=== PATIENT | male | born 1960 | race Caucasian/White ===

== ENCOUNTER 2020-05-07 10:28 | Day surgery (SDC) | payer OTHER ==
[~2020-05-07] VITALS: Ht 193 cm; Wt 103.7 kg
[2020-05-07] MEDS ORDERED: AMARYL1 M1 PO (11:19)
[2020-05-07] MEDS ORDERED: INVOKANA300 MG PO (11:19)
[2020-05-07] MEDS ORDERED: IBUP200 PO (11:20)
[2020-05-07] MEDS ORDERED: TADA10TA (11:20)
[2020-05-07] MEDS ORDERED: LISI20 PO (11:21)
[2020-05-07] MEDS ORDERED: METF500 PO (11:21)
[2020-05-07] MEDS ORDERED: ATOR40TA PO (11:22)
== END 2020-05-07 12:37 | disposition home or self-care (01) ==
LOC: ORSCSDS 10:28
PROVIDERS: Orthopaedic Surgery
PROC: 01N54ZZ Release Median Nerve, Percutaneous Endoscopic Approach (ICD-10-PCS; principal; 2020-05-07 11:45)
DX: G56.02 Carpal tunnel syndrome, left upper limb (principal); E11.9 Type 2 diabetes mellitus without complications; G47.30 Sleep apnea, unspecified; I10 Essential (primary) hypertension; Z87.891 Personal history of nicotine dependence; Z79.82 Long term (current) use of aspirin; Z79.899 Other long term (current) drug therapy; Z79.84 Long term (current) use of oral hypoglycemic drugs
CPT/HCPCS: 82947; J2250; J3010; J7120